=== PATIENT | male | born 1960 | race American Indian/Alaskan Native ===

== ENCOUNTER 2018-04-29 10:35 | Day surgery (SDC) | payer OTHER ==
[~2018-04-29 10:35] MED LIST: ANCEF/STERILE WATER 2 GM/20 ML IV NR; DEMEROL IV PRN; DILAUDID IV PRN; LACTATED RINGERS 1,000 ML IV SCH; VERSED IV NR; ZOFRAN IV PRN
[2018-04-29] MEDS ORDERED: DILAUDID IM ONE (11:38)
--- NOTE | 2018-04-29 12:09 | Anesthesia Consultation ---
Anesthesia Consult and Med Hx Date of service: 04/29/18 - Airway Anesthetic Teeth Evaluation: Good ROM Head & Neck: Adequate Mental/Hyoid Distance: Adequate Mallampati Class: Class II Intubation Access Assessment: Probably Good - Pulmonary Exam CTA: Yes - Cardiac Exam Cardiac Exam: RRR - Pre-Operative Health Status ASA Pre-Surgery Classification: ASA3 Proposed Anesthetic Plan: General - Pulmonary Hx Smoking: No Hx Respiratory Symptoms: No Hx Sleep Apnea: No (FRANCHESKA PRE SCREEN HIGH RISK) - Cardiovascular System Hx Hypertension: Yes (OFF MEDS X 1 YR) Hx Heart Attack/AMI: No Hx Percutaneous Transluminal Coronary Angioplasty (PTCA): No - Central Nervous System Hx Seizures: No CVA: No - Gastrointestinal Hx Gastroesophageal Reflux Disease: Yes (asymptomatic today; diet controlled) - Endocrine Hx Renal Disease: Yes (right hydronephrosis) Hx Liver Disease: No Hx Insulin Dependent Diabetes: No Hx Thyroid Disease: No - Additional Comments Anesthesia Medical History Comments: No hx anesthetic complications.
--- NOTE | 2018-04-29 12:09 | Anesthesia Day of Surgery ---
Anesthesia Day of Surgery - Day of Surgery Patient Examined: Yes Patient H&P Reviewed: Yes Patient is NPO: Yes
[2018-04-29] MEDS ORDERED: DILAUDID IV ONE (12:17)
[2018-04-29] MEDS ORDERED: DIPRIVAN 10 MG/ML IV ONE (13:49)
[2018-04-29] MEDS ORDERED: DECADRON ONE (13:49)
[2018-04-29] MEDS ORDERED: ZOFRAN ONE (13:49)
[2018-04-29] MEDS ORDERED: XYLOCAINE MPF 2% ONE (13:49)
[2018-04-29] MEDS ORDERED: DILAUDID ONE (14:17)
[2018-04-29] MEDS ORDERED: ROBINUL ONE (14:24)
--- NOTE | 2018-04-29 14:40 | Short Stay Summary ---
Short Stay Documentation Date of service: 04/29/18 - History H&P: obtained from office - Allergies and Medications Current Medications: Allergies doxycycline Allergy (Verified 04/28/18 09:51) Dizziness Home Medications Medication Instructions Recorded Confirmed Last Taken Type Ketorolac [Toradol] 10 mg PO Q4HR PRN 04/28/18 04/29/18 04/27/18 History Multivit-Mins/Iron/Folic/Lycop 1 each PO DAILY 04/28/18 04/29/18 1 Week Ago History [Centrum Men's Tablet] ~04/22/18 Simvastatin [Zocor TAB] 10 mg PO DAILY 04/28/18 04/29/18 04/27/18 History Tamsulosin HCl [Flomax] 0.4 mg PO DAILY 04/28/18 04/29/18 04/27/18 History Bimatoprost [Lumigan] 1 drop OU QHS 04/29/18 04/29/18 2 Weeks Ago History ~04/15/18 Phenazopyridine [Pyridium] 200 mg PO TID 04/29/18 04/29/18 04/27/18 History Sulfamethoxazole/Trimethoprim 1 tab PO BID 04/29/18 04/29/18 04/28/18 History [Bactrim DS TAB] Active Medications Cefazolin Sodium (Ancef/Sterile Water 2 Gm/20 Ml) 2 gm IV PREOP NR Stop: 04/29/18 15:00 Hydromorphone HCl (Dilaudid) 0.5 mg IV Q10MIN PRN PRN Reason: Pain , Severe (7-10) Stop: 04/29/18 20:00 Lactated Ringer's (Lactated Ringers) 1,000 mls @ 100 mls/hr IV DIRECT ZOE Last Admin: 04/29/18 11:40 Dose: 100 mls/hr Meperidine HCl (Demerol) 25 mg IV ONCE PRN PRN Reason: Shivering Stop: 04/29/18 20:00 Midazolam HCl (Versed) 2 mg IV PREOP NR Stop: 04/29/18 23:59 Last Admin: 04/29/18 11:42 Dose: 2 mg Ondansetron HCl (Zofran) 4 mg IV ONCE PRN PRN Reason: Nausea And Vomiting Stop: 04/29/18 15:00 - Brief post op/procedure progress note Date of procedure: 04/29/18 Pre-op diagnosis: rt renal stone Post-op diagnosis: same Procedure: rt ESWL Anesthesia: GETA Surgeon: NICKIE FELIX Estimated blood loss: none Condition: stable - Hospital course Hospital course: percocet, post op info on chart - Disposition Condition at discharge: Stable Disposition: DC-01 TO HOME OR SELFCARE Short Stay Discharge Plan Follow up with: XENA AGUIRRE MD [Primary Care Provider] - 7 Days
--- NOTE | 2018-04-29 15:26 | Operative Report ---
PREOPERATIVE DIAGNOSES: Right renal stone, status post stent placement. POSTOPERATIVE DIAGNOSES: Right renal stone, status post stent placement. PROCEDURE: Right extracorporal shock wave lithotripsy. SURGEON: Skyler Bennett MD ANESTHESIA: General. ESTIMATED BLOOD LOSS: Minimal. FLUIDS: Crystalloid. COMPLICATIONS: No complications. INDICATIONS: This patient is a 57-year-old gentleman seen by Dr. Tim in the office for evaluation of a kidney stone. He is status post stent placement for 8-mm right proximal ureteral stone. Risks, benefits, and complications were explained and the patient agreed to proceed. DESCRIPTION OF PROCEDURE: He was taken to the operative suite, placed in supine position after adequate general anesthesia. Stone was actually in the renal pelvis. Extracorporal shock wave lithotripsy was administered in maximum kV of eight 2000 shocks. The patient developed some ectopy during the case, which did not respond to medication, therefore, he was gated. Initially, we had gone up to 8 kV, it was dropped down to 7 with less ectopy, 2000 shocks were given. Adequate fragmentation was appreciated. He tolerated the procedure well and was extubated and taken to recovery room. He was discharged on Percocet with postoperative instructions. JOB# [id number] MANJINDER/SERENITY
[2018-04-29 15:46] VITALS: BP 138/84
== END 2018-04-29 16:19 | disposition home or self-care (01) ==
LOC: OR 10:35
PROVIDERS: ATTEND Urology
DX: N20.0 Calculus of kidney (principal); E78.00 Pure hypercholesterolemia, unspecified; I10 Essential (primary) hypertension; K21.9 Gastro-esophageal reflux disease without esophagitis; H40.9 Unspecified glaucoma; Z79.899 Other long term (current) drug therapy; Z88.8 Allergy status to other drugs, medicaments and biological substances
CPT/HCPCS: 50590; J0690; J1100; J1170; J2250; J2405; J2704; J7120